=== PATIENT | female | born 1990 | race African-American/Black ===

== ENCOUNTER 2017-09-15 17:56 | Emergency (ER) | payer BC ==
[2017-09-15 18:42] VITALS: BP 125/71
--- NOTE | 2017-09-15 19:47 | UC ---
Complaint Female HPI - HPI Summary HPI Summary: urinary frequency and dysuria beginning last night - History Of Current Complaint Chief Complaint: UCGU Stated Complaint: UTI Time Seen by Provider: 09/15/17 19:35 Hx Obtained From: Patient Hx Last Menstrual Period: 09/05/17 ?: No Onset/Duration: Sudden Onset, Lasting Days - 1, Still Present Timing: Constant Severity Initially: Mild Severity Currently: Mild Character: Burning Aggravating Factor(s): Urination Associated Signs And Symptoms: Positive: Negative - Allergies/Home Medications Allergies/Adverse Reactions: Allergies Allergy/AdvReac Type Severity Reaction Status Date / Time Penicillins Allergy Hives Verified 09/15/17 18:37 PMH/Surg Hx/FS Hx/Imm Hx Previously Healthy: No Respiratory History: Asthma - mild intermittent asthma - Surgical History Surgical History: Yes Surgery Procedure, Year, and Place: 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 Left Ovary and tube, 2010, [facility] - Family History Known Family History: Positive: Hypertension, Diabetes, Other - colon CA - Social History Occupation: Employed Full-time Lives: With Family Alcohol Use: Occasionally Substance Use Type: None Smoking Status (MU): Never Smoked Tobacco Have You Smoked in the Last Year: No - Immunization History Most Recent Influenza Vaccination: February 2015 Most Recent Tetanus Shot: UTD Review of Systems Constitutional: Negative Skin: Negative Eyes: Negative ENT: Negative Respiratory: Negative Cardiovascular: Negative Gastrointestinal: Negative Genitourinary: Dysuria, Hematuria, Frequency, Urgency Motor: Negative Neurovascular: Negative Musculoskeletal: Negative Neurological: Negative Psychological: Negative Is Patient Immunocompromised?: No All Other Systems Reviewed And Are Negative: Yes Physical Exam Triage Information Reviewed: Yes Appearance: Well-Appearing, No Pain Distress, Well-Nourished Vital Signs: Initial Vital Signs Temp 98.6 F 09/15/17 18:38 Pulse 88 09/15/17 18:38 Resp 16 09/15/17 18:38 BP 125/71 09/15/17 18:38 Pulse Ox 100 09/15/17 18:38 Vital Signs Reviewed: Yes Eye Exam: Normal Eyes: Positive: Conjunctiva Clear ENT Exam: Normal ENT: Positive: Normal ENT inspection, Hearing grossly normal. Negative: Trismus , Muffled voice, Hoarse voice Dental Exam: Normal Neck exam: Normal Neck: Positive: Supple, Nontender Respiratory Exam: Normal Respiratory: Positive: Chest non-tender, No respiratory distress, No accessory muscle use Cardiovascular Exam: Normal Cardiovascular: Positive: RRR, Pulses Normal, Brisk Capillary Refill Abdominal Exam: Normal Abdomen Description: Positive: Nontender, No Organomegaly, Soft. Negative: CVA Tenderness (R), CVA Tenderness (L), McBurney's Point Tenderness Bowel Sounds: Positive: Present Musculoskeletal Exam: Normal Musculoskeletal: Positive: Strength Intact, ROM Intact Neurological Exam: Normal Neurological: Positive: Alert, Muscle Tone Normal Psychological Exam: Normal Skin Exam: Normal Diagnostics - Laboratory Diagnostic Studies Completed/Ordered: ua +3 blood, +3 leukoesterace Complaint Female Dx - Course Course Of Treatment: macrobid, azo, increase fluids follow with pcp prn - Differential Dx/Diagnosis Provider Diagnoses: UTI Discharge - Sign-Out/Discharge Documenting (check all that apply): Discharge/Admit/Transfer - Discharge Plan Condition: Stable Disposition: HOME Prescriptions: Fluconazole [Diflucan 150 MG (NF)] 150 mg PO ONCE #2 tab Nitrofurantoin Monohyd/M-Cryst [Macrobid 100 mg Capsule] 100 mg PO BID #10 cap Phenazopyridine TAB* [Pyridium 100 mg TAB*] 100 mg PO TID PRN #6 tab PRN Reason: urinary pain and burning Patient Education Materials: Urinary Tract Infection in Women (ED) Referrals: Sheryl Kelley MD [Primary Care Provider] - If Needed - Billing Disposition and Condition Condition: STABLE Disposition: Home
--- NOTE | 2017-09-19 07:18 | UC ---
- Progress Note Progress Note: RN to call pt. E coli 09/15/17 cx. Cont Nitrofurantoin. Recommend recheck pcp when sx clear to ensure resolved. Discharge - Sign-Out/Discharge Documenting (check all that apply): Post-Discharge Follow Up - Discharge Plan Condition: Stable Disposition: HOME Prescriptions: Fluconazole [Diflucan 150 MG (NF)] 150 mg PO ONCE #2 tab Nitrofurantoin Monohyd/M-Cryst [Macrobid 100 mg Capsule] 100 mg PO BID #10 cap Phenazopyridine TAB* [Pyridium 100 mg TAB*] 100 mg PO TID PRN #6 tab PRN Reason: urinary pain and burning Patient Education Materials: Urinary Tract Infection in Women (ED) Referrals: Sheryl Kelley MD [Primary Care Provider] - If Needed - Billing Disposition and Condition Condition: STABLE Disposition: HOME
== END 2017-09-15 20:02 | disposition home or self-care (01) ==
LOC: UCCORT 17:56
DX: N39.0 Urinary tract infection, site not specified (principal); B96.20 Unspecified Escherichia coli [E. coli] as the cause of diseases classified elsewhere; R31.9 Hematuria, unspecified; J45.20 Mild intermittent asthma, uncomplicated; Z88.0 Allergy status to penicillin; Z82.49 Family history of ischemic heart disease and other diseases of the circulatory system; Z83.3 Family history of diabetes mellitus; Z80.0 Family history of malignant neoplasm of digestive organs
CPT/HCPCS: 81003; 84702; 87077; 87086; 87186; 99212; G0463

== ENCOUNTER 2017-10-03 16:11 | Emergency (ER) | payer BC ==
[2017-10-03 17:04] VITALS: BP 115/66
--- NOTE | 2017-10-03 17:12 | UC ---
Complaint Female HPI - HPI Summary HPI Summary: Pt c/o sudden onset of urinary frequency, urgency and dysuria X 1 day. - History Of Current Complaint Stated Complaint: URINARY Time Seen by Provider: 10/03/17 17:00 Hx Obtained From: Patient Hx Last Menstrual Period: 10/02/17 ?: No Onset/Duration: Sudden Onset Timing: Constant Severity Initially: Mild Severity Currently: Mild Pain Intensity: 0 Character: Dull, Burning Aggravating Factor(s): Urination Alleviating Factor(s): Meds - OTC AZO Associated Signs And Symptoms: Positive: Negative - Risk Factors Ectopic Risk Factor: Negative Ovarian Torsion Risk Factor: Reproductive Age - Allergies/Home Medications Allergies/Adverse Reactions: Allergies Allergy/AdvReac Type Severity Reaction Status Date / Time Penicillins Allergy Hives Verified 10/03/17 17:04 PMH/Surg Hx/FS Hx/Imm Hx Previously Healthy: Yes - Surgical History Surgical History: Yes Surgery Procedure, Year, and Place: 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 Left Ovary and tube, 2010, [facility] - Family History Known Family History: Positive: Hypertension, Diabetes, Other - colon CA - Social History Occupation: Employed Part-time Lives: With Family Alcohol Use: Occasionally Substance Use Type: None Smoking Status (MU): Never Smoked Tobacco Have You Smoked in the Last Year: No - Immunization History Most Recent Influenza Vaccination: February 2015 Most Recent Tetanus Shot: UTD Review of Systems Constitutional: Negative Skin: Negative Eyes: Negative ENT: Negative Respiratory: Negative Cardiovascular: Negative Gastrointestinal: Negative Genitourinary: Dysuria, Frequency, Urgency Motor: Negative Neurovascular: Negative Musculoskeletal: Negative Neurological: Negative Psychological: Negative Is Patient Immunocompromised?: No All Other Systems Reviewed And Are Negative: Yes Physical Exam Triage Information Reviewed: Yes Appearance: Well-Appearing Vital Signs: Initial Vital Signs Temp 97.8 F 10/03/17 16:56 Pulse 68 10/03/17 16:56 Resp 16 10/03/17 16:56 BP 115/66 10/03/17 16:56 Pulse Ox 100 10/03/17 16:56 Vital Signs Reviewed: Yes Eye Exam: Normal ENT Exam: Normal Dental Exam: Normal Neck exam: Normal Respiratory: Positive: No respiratory distress Musculoskeletal Exam: Normal Neurological Exam: Normal Psychological Exam: Normal Skin Exam: Normal Complaint Female Dx - Differential Dx/Diagnosis Differential Diagnosis/HQI/PQRI: Urinary Tract Infection Provider Diagnoses: UTI Discharge - Sign-Out/Discharge Documenting (check all that apply): Discharge/Admit/Transfer - Discharge Plan Condition: Stable Disposition: HOME Prescriptions: Fluconazole 100 MG TAB* [Diflucan 100 MG TAB*] 100 mg PO DAILY #2 tab Sulfamethox/Trimethoprim DS* [Bactrim DS 800/160 TAB*] 1 tab PO Q12H #10 tab Patient Education Materials: Urinary Tract Infection in Women (ED) Referrals: Sheryl Kelley MD [Primary Care Provider] - If Needed - Billing Disposition and Condition Condition: STABLE Disposition: Home
== END 2017-10-03 17:21 | disposition home or self-care (01) ==
LOC: UCCORT 16:11
DX: N39.0 Urinary tract infection, site not specified (principal); Z88.0 Allergy status to penicillin; Z90.721 Acquired absence of ovaries, unilateral
CPT/HCPCS: 81003; 87086; 99212; G0463